=== PATIENT | female | born 1955 | race Native Hawaiian/Other Pacific Islander ===

== ENCOUNTER 2016-12-22 21:27 | Outpatient (CLI) | payer OTHER | END 2016-12-22 21:58 | disposition short-term general hospital (02) | LOC: AMB 21:27 | DX: M25.512 Pain in left shoulder (principal); R07.81 Pleurodynia; W18.39XA Other fall on same level, initial encounter; Y92.098 Other place in other non-institutional residence as the place of occurrence of the external cause | CPT/HCPCS: A0425; A0427 ==

== ENCOUNTER 2017-02-27 14:00 | Outpatient (CLI) | payer OTHER | END 2017-02-27 15:00 | disposition home or self-care (01) | LOC: RAD 14:00 | DX: M96.622 Fracture of humerus following insertion of orthopedic implant, joint prosthesis, or bone plate, left arm (principal); S42.002A Fracture of unspecified part of left clavicle, initial encounter for closed fracture ==

== ENCOUNTER 2018-03-01 13:01 | Outpatient (CLI) | payer OTHER | END 2018-03-01 22:19 | disposition home or self-care (01) | LOC: MAMMO 13:01 | DX: Z12.31 Encounter for screening mammogram for malignant neoplasm of breast (principal) ==

== ENCOUNTER 2018-08-28 09:38 | Outpatient (CLI) | payer OTHER | END 2018-08-28 23:16 | disposition home or self-care (01) | LOC: RAD 09:38 | DX: M54.17 Radiculopathy, lumbosacral region (principal) ==

== ENCOUNTER 2019-01-20 11:51 | Outpatient (CLI) | payer OTHER | END 2019-01-20 11:58 | disposition short-term general hospital (02) | LOC: AMB 11:51 | DX: M25.511 Pain in right shoulder (principal); S40.011A Contusion of right shoulder, initial encounter; W18.39XA Other fall on same level, initial encounter; Y93.89 Activity, other specified; Y92.028 Other place in mobile home as the place of occurrence of the external cause | CPT/HCPCS: A0425; A0429 ==

== ENCOUNTER 2019-01-20 12:09 | Emergency (ER) | payer OTHER ==
[~2019-01-20] VITALS: Ht 154.9 cm; Wt 52.2 kg
[2019-01-20 15:00] VITALS: BP 152/83; TEMP 97.6
== END 2019-01-20 15:00 | disposition home or self-care (01) ==
LOC: ED 12:09
DX: S42.031A Displaced fracture of lateral end of right clavicle, initial encounter for closed fracture (principal); S40.011A Contusion of right shoulder, initial encounter; S22.31XA Fracture of one rib, right side, initial encounter for closed fracture; W01.190A Fall on same level from slipping, tripping and stumbling with subsequent striking against furniture, initial encounter; Y92.098 Other place in other non-institutional residence as the place of occurrence of the external cause
CPT/HCPCS: 99283

== ENCOUNTER 2019-04-05 13:32 | Outpatient (CLI) | payer OTHER | END 2019-04-05 13:44 | disposition short-term general hospital (02) | LOC: AMB 13:32 | DX: J70.5 Respiratory conditions due to smoke inhalation (principal); R07.0 Pain in throat; T23.109A Burn of first degree of unspecified hand, unspecified site, initial encounter; T25.129A Burn of first degree of unspecified foot, initial encounter; X08.8XXA Exposure to other specified smoke, fire and flames, initial encounter; Y92.013 Bedroom of single-family (private) house as the place of occurrence of the external cause | CPT/HCPCS: A0425; A0427 ==

== ENCOUNTER 2019-04-05 13:54 | Emergency (ER) | payer OTHER ==
[~2019-04-05] VITALS: Ht 154.9 cm; Wt 52.2 kg
[2019-04-05 14:12] LABS: PLATELET COUNT 367 K/uL (152-353)
[2019-04-05 14:33] LABS: POTASSIUM 3.6 mmol/L (3.6-5.2)
[2019-04-05 15:05] VITALS: BP 168/98
== END 2019-04-05 14:37 ==
LOC: ED 13:54
PROVIDERS: Emergency Medicine
PROC: 0BH17EZ Insertion of Endotracheal Airway into Trachea, Via Natural or Artificial Opening (ICD-10-PCS; principal; 2019-04-05)
PROC: 0DH57BZ Insertion of Airway into Esophagus, Via Natural or Artificial Opening (ICD-10-PCS; 2019-04-05)
DX: J70.5 Respiratory conditions due to smoke inhalation (principal); T20.17XA Burn of first degree of neck, initial encounter; T21.14XA Burn of first degree of lower back, initial encounter; T22.10XA Burn of first degree of shoulder and upper limb, except wrist and hand, unspecified site, initial encounter; T23.102A Burn of first degree of left hand, unspecified site, initial encounter; T23.101A Burn of first degree of right hand, unspecified site, initial encounter; T20.14XA Burn of first degree of nose (septum), initial encounter; T28.0XXA Burn of mouth and pharynx, initial encounter; T31.40 Burns involving 40-49% of body surface with 0% to 9% third degree burns; X08.8XXA Exposure to other specified smoke, fire and flames, initial encounter; Y92.89 Other specified places as the place of occurrence of the external cause
CPT/HCPCS: 31500; 43754; 80053; 85027; 90715; 96368; 96374; 96375; 99285; J0330; J2250

== ENCOUNTER 2019-06-19 14:52 | Outpatient (CLI) | payer OTHER | END 2019-06-19 15:09 | disposition short-term general hospital (02) | LOC: AMB 14:52 | DX: M79.641 Pain in right hand (principal); S80.211A Abrasion, right knee, initial encounter; S00.81XA Abrasion of other part of head, initial encounter; W18.39XA Other fall on same level, initial encounter; Y92.89 Other specified places as the place of occurrence of the external cause | CPT/HCPCS: A0425; A0429 ==

== ENCOUNTER 2019-06-19 15:16 | Emergency (ER) | payer OTHER ==
[~2019-06-19] VITALS: Ht 154.9 cm; Wt 52.2 kg
[2019-06-19 15:16] VITALS: TEMP 97.7
[2019-06-19 16:59] VITALS: BP 134/65
== END 2019-06-19 16:59 | disposition home or self-care (01) ==
LOC: ED 15:16
PROC: 0JQJ0ZZ Repair Right Hand Subcutaneous Tissue and Fascia, Open Approach (ICD-10-PCS; principal; 2019-06-19)
PROC: 2W3JX1Z Immobilization of Right Finger using Splint (ICD-10-PCS; 2019-06-19)
PROC: 0PSPXZZ Reposition Right Metacarpal, External Approach (ICD-10-PCS; 2019-06-19)
DX: S61.411A Laceration without foreign body of right hand, initial encounter (principal); S62.644A Nondisplaced fracture of proximal phalanx of right ring finger, initial encounter for closed fracture; S63.264A Dislocation of metacarpophalangeal joint of right ring finger, initial encounter; W18.39XA Other fall on same level, initial encounter; Y92.89 Other specified places as the place of occurrence of the external cause
CPT/HCPCS: 99283